=== PATIENT | female | born 1995 | race Caucasian/White ===

== ENCOUNTER → 2019-09-23 | Outpatient (CLI) | payer BC ==
--- NOTE | 2019-09-23 13:20 | RAD ---
Transabdominal pelvic ultrasound without comparison for irregular menses. Technique and findings: Real-time grayscale and color and spectral Doppler evaluation of the pelvic organs is performed. The urinary bladder is filled with urine and provides adequate acoustic window. The uterus measures 7.3 x 4.5 x 2.3 cm and is normal in contour and size with no focal myometrial abnormalities. Endometrium is normal in appearance as well, with a maximal thickness of 2.3 mm. No endometrial abnormalities are identified. No endometrial fluid is seen. Cervix is normal in appearance. The right ovary measures 2.8 x 2.4 x 1.5 cm and the left measures 2.6 x 2.0 x 1.4 cm. There is normal color and spectral flow to both ovaries. No free or loculated pelvic fluid collections are identified and no adnexal masses are seen. IMPRESSION: 1. Normal transabdominal pelvic ultrasound. Electronically signed by: Vin Watt MD (09/23/2019 1:17 PM) [id number]
== END ==
LOC: US 09:54
PROVIDERS: ATTEND Nurse Practitioner Women's Health
DX: N92.6 Irregular menstruation, unspecified (principal)
CPT/HCPCS: 76856

== ENCOUNTER → 2020-09-13 | Outpatient (CLI) | payer BC | LOC: LAB 08:43 | PROVIDERS: ATTEND Nurse Practitioner Women's Health | DX: N97.9 Female infertility, unspecified (principal) | CPT/HCPCS: 36415; 84144 ==

== ENCOUNTER → 2020-10-12 | Outpatient (CLI) | payer BC | LOC: LAB 08:28 | PROVIDERS: ATTEND Obstetrics & Gynecology | DX: N97.9 Female infertility, unspecified (principal) | CPT/HCPCS: 36415; 84144 ==